=== PATIENT | male | born 1995 | race Two or more races ===

== ENCOUNTER 2022-08-13 16:57 | Emergency (ER) | payer OTHER ==
[~2022-08-13] VITALS: Ht 175.3 cm; Wt 68.3 kg
[2022-08-13 16:57] VITALS: BP 144/90
[2022-08-13] MEDS ORDERED: LORA-930 (17:03)
[2022-08-13] MEDS ORDERED: SERT25TA21 (17:03)
[2022-08-13] MEDS ORDERED: FLUO10CA18 PO (17:03)
[2022-08-13 20:04] LABS: CK-MB VALUE MASS 1.6 NG/ML (<3.6)
[2022-08-13 20:07] LABS: CPK CREATINE PHOSPHOKINASE 118 U/L (46-171); MB/CK RELATIVE INDEX 1.35 (< OR =4)
[2022-08-13 20:51] LABS: BASO % 0.4 % (0.0-1.0); EOS # 0.2 10^3/uL (0.0-0.5); EOS % 3.1 % (0.0-3.0); HEMATOCRIT 41.9 % (42.0-52.0); HEMOGLOBIN 14.8 g/dl (13.5-17.5); LYMPH # 2.4 10^3/uL (1.5-5.0); LYMPH % 36.6 % (24.0-44.0); MEAN CORPUSCULAR HEMOGLOBIN 29.9 pg (27.0-33.0); MEAN CORPUSCULAR HGB CONC 35.3 g/dl (32.0-36.5); MEAN CORPUSCULAR VOLUME 84.6 fl (80.0-96.0); MONO # 0.5 10^3/uL (0.0-0.8); MONO % 7.2 % (2.0-8.0); NEUTROPHILS # 3.5 10^3/uL (1.5-8.5); NEUTROPHILS % 52.4 % (36.0-66.0); PLATELET COUNT, AUTOMATED 297 10^3/uL (150-450); RED BLOOD COUNT 4.95 10^6/uL (4.30-6.10); WHITE BLOOD COUNT 6.7 10^3/uL (4.0-10.0)
[2022-08-13] MEDS ORDERED: ALBU6.7H6 INH (22:50)
[2022-08-13] MEDS ORDERED: BENZ200C70 PO (22:50)
== END 2022-08-13 22:59 | disposition home or self-care (01) ==
LOC: M ED 16:57
DX: J20.9 Acute bronchitis, unspecified (principal); F17.200 Nicotine dependence, unspecified, uncomplicated; Z79.52 Long term (current) use of systemic steroids; Z79.899 Other long term (current) drug therapy

== ENCOUNTER 2022-09-30 16:34 | Inpatient (IN) | payer OTHER ==
[~2022-09-30] VITALS: Ht 172.7 cm; Wt 65.6 kg
[~2022-09-30 16:34] MED LIST: ALBU6.7H6 INH; BENZ200C70 PO; FLUO10CA18 PO; LORA-930; SERT25TA21
[2022-09-30] MEDS ORDERED: FLUO40CA PO ×2 (17:12→21:49)
[2022-09-30 17:52] LABS: HEMATOCRIT 43.5 % (42.0-52.0); HEMOGLOBIN 15.2 g/dl (13.5-17.5); MEAN CORPUSCULAR HEMOGLOBIN 30.5 pg (27.0-33.0); MEAN CORPUSCULAR HGB CONC 34.9 g/dl (32.0-36.5); MEAN CORPUSCULAR VOLUME 87.2 fl (80.0-96.0); PLATELET COUNT, AUTOMATED 254 10^3/uL (150-450); RED BLOOD COUNT 4.99 10^6/uL (4.30-6.10); WHITE BLOOD COUNT 6.3 10^3/uL (4.0-10.0)
[2022-09-30 18:09] LABS: ETHYL ALCOHOL (ETHANOL) 0.003 % (0.000-0.010)
[2022-09-30 18:10] LABS: ACETAMINOPHEN LEVEL < 2.0 UG/ML (10.0-20.0); SALICYLATE LEVEL < 3.0 MG/DL (<30)
[2022-09-30 18:11] LABS: ALBUMIN 4.6 G/DL (3.2-5.2); ALKALINE PHOSPHATASE 71 U/L (46-116); ALT/SGPT 33 U/L (7.0-40); AST/SGOT 23 U/L (<34); BILIRUBIN,DIRECT 0.3 MG/DL (<0.4); BILIRUBIN,TOTAL 0.8 MG/DL (0.3-1.2); BLOOD UREA NITROGEN 17 MG/DL (9-23); CALCIUM LEVEL 9.1 MG/DL (8.5-10.1); CARBON DIOXIDE LEVEL 29 MMOL/L (20-31); CHLORIDE LEVEL 107 MMOL/L (98-107); CREATININE FOR GFR 0.88 MG/DL (0.70-1.30); GLOMERULAR FILTRATION RATE > 60.0 (>60); GLUCOSE, FASTING 84 MG/DL (60-100); POTASSIUM SERUM 4.7 MMOL/L (3.5-5.1); SODIUM LEVEL 141 MMOL/L (136-145); TOTAL PROTEIN 7.4 G/DL (5.7-8.2)
[2022-09-30 18:12] LABS: THYROID STIMULATING HORMONE 1.129 uIU/ML (0.55-4.78)
[2022-09-30 19:29] LABS: AMPHETAMINES LEVEL URINE NEGATIVE (NEGATIVE); BARBITURATES URINE NEGATIVE (NEGATIVE); BENZODIAZEPINES URINE NEGATIVE (NEGATIVE); CANNABINOIDS URINE NEGATIVE (NEGATIVE); COCAINE METABOLITE URINE NEGATIVE (NEGATIVE); METHADONE URINE NEGATIVE (NEGATIVE); PHENCYCLIDINE URINE NEGATIVE (NEGATIVE)
[2022-09-30 19:32] LABS: OPIATES URINE POSITIVE (NEGATIVE)
[2022-09-30] MEDS ORDERED: CALCIUM CARBONATE 500 MG CHEW U/D PO ONE (19:50)
[2022-09-30] MEDS ORDERED: MAALOX 30 ML SUSP *UDC PO PRN (20:20)
[2022-09-30] MEDS ORDERED: MOM 30ML SUSPENSION UDC PO PRN (20:20)
[2022-09-30] MEDS ORDERED: ACETAMINOPHEN TAB 650MG DOSE (2X325MG) PO PRN (20:20)
[2022-09-30] MEDS ORDERED: BENZ200C70 PO (21:49)
[2022-09-30] MEDS ORDERED: ALBU8.5H INH (21:49)
[2022-09-30] MEDS ORDERED: LORA-674 PO (21:49)
[2022-09-30] MEDS ORDERED: HOME MED LIST COMPLETE! XX SCH (21:50)
[2022-09-30] MEDS: traZODone 50 MG TAB PO PRN (22:23)
[2022-09-30 22:43] VITALS: BP 124/81; TEMP 98; O2SAT 100
[2022-10-01 06:30] VITALS: BP 110/58; TEMP 97.5; O2SAT 95
[2022-10-01] MEDS: FLUoxetine 20MG CAP PO SCH (08:58)
[2022-10-01] MEDS: NICOTINE 21MG/24HR 1 EA TRANSDERMAL TD SCH (08:59)
[2022-10-01] MEDS ORDERED: **PENDING PPD ENTRY XX SCH (09:00)
[2022-10-01] MEDS ORDERED: PILL CUTTER 1 EACH XX PRN (10:10)
[2022-10-01] MEDS: busPIRone 5 MG TAB PO SCH ×2 (10:24→19:58)
[2022-10-01 15:55] VITALS: BP 115/69; TEMP 98.2; O2SAT 99
[2022-10-01] MEDS ORDERED: TUBERCULIN PPD 5 UNITS/0.1 ML ID ONE ×2 (18:45→20:00)
[2022-10-01] MEDS ORDERED: ISOVUE-370 76% 100ML VIAL As Ordered ONE (18:53)
[2022-10-01] MEDS: LORazepam 1 MG TAB PO PRN (19:57)
[2022-10-01 21:05] LABS: HEMOGLOBIN A1c 4.5 % (4.0-6.0)
[2022-10-01 21:36] LABS: HEPATITIS B SURFACE ANTIGEN NEGATIVE (NEGATIVE)
[2022-10-01] MEDS: traZODone 50 MG TAB PO PRN (21:41)
[2022-10-01 21:57] LABS: HEPATITIS C VIRUS ABY INDEX 0.1 INDEX (<0.8)
[2022-10-01 21:58] LABS: HEPATITIS B CORE ANTIBODY IGM NEGATIVE (NEGATIVE)
[2022-10-02 05:35] VITALS: BP 100/67; TEMP 98.9; O2SAT 97
[2022-10-02] MEDS: FLUoxetine 20MG CAP PO SCH (08:38)
[2022-10-02] MEDS: busPIRone 5 MG TAB PO SCH (08:38)
[2022-10-02] MEDS: NICOTINE 21MG/24HR 1 EA TRANSDERMAL TD SCH (08:39)
[2022-10-02] MEDS: LORazepam 1 MG TAB PO PRN (14:47)
[2022-10-02 18:36] VITALS: BP 117/76; TEMP 97.3; O2SAT 97
[2022-10-02] MEDS: busPIRone 10 MG TAB PO SCH (20:47)
[2022-10-02] MEDS: traZODone 50 MG TAB PO PRN (22:11)
[2022-10-03 06:03] VITALS: BP 124/63; TEMP 98.4; O2SAT 98
[2022-10-03] MEDS: busPIRone 10 MG TAB PO SCH ×2 (08:11→21:55)
[2022-10-03] MEDS: NICOTINE 21MG/24HR 1 EA TRANSDERMAL TD SCH (08:11)
[2022-10-03] MEDS: FLUoxetine 20MG CAP PO SCH (08:11)
[2022-10-03] MEDS ORDERED: PPD DOCUMENTATION ENTRY MISC XX SCH (10:00)
[2022-10-03 16:00] VITALS: BP 124/67; TEMP 97.6; O2SAT 97
[2022-10-03] MEDS: LORazepam 1 MG TAB PO PRN (17:29)
[2022-10-03] MEDS ORDERED: PPD DOCUMENTATION ENTRY MISC XX ONE (20:00)
[2022-10-03] MEDS: ARIPiprazole 2 MG TAB PO SCH (21:55)
[2022-10-03] MEDS: traZODone 50 MG TAB PO PRN (22:37)
[2022-10-04 06:21] VITALS: BP 103/51; TEMP 96.9; O2SAT 100
[2022-10-04 08:01] LABS: CHOLESTEROL RISK RATIO 2.88 (<5); LDL CHOLESTEROL 63.2 MG/DL (<100)
[2022-10-04] MEDS: NICOTINE 21MG/24HR 1 EA TRANSDERMAL TD SCH (08:42)
[2022-10-04] MEDS: busPIRone 10 MG TAB PO SCH (08:43)
[2022-10-04] MEDS: FLUoxetine 20MG CAP PO SCH (08:44)
[2022-10-04] MEDS: LORazepam 1 MG TAB PO PRN (15:16)
[2022-10-04 16:18] VITALS: BP 121/65; TEMP 98.1; O2SAT 97
[2022-10-04] MEDS: busPIRone 5 MG TAB PO SCH (20:06)
[2022-10-04] MEDS: ARIPiprazole 2 MG TAB PO SCH (20:06)
[2022-10-04] MEDS: PRAZOSIN 1 MG CAP PO SCH (20:07)
[2022-10-04] MEDS: traZODone 50 MG TAB PO PRN (22:59)
[2022-10-05 06:41] VITALS: BP 104/56; TEMP 98; O2SAT 98
[2022-10-05] MEDS: NICOTINE 21MG/24HR 1 EA TRANSDERMAL TD SCH (08:14)
[2022-10-05] MEDS: busPIRone 5 MG TAB PO SCH ×2 (08:15→20:54)
[2022-10-05] MEDS: LORazepam 1 MG TAB PO PRN ×2 (08:15→17:36)
[2022-10-05] MEDS: FLUoxetine 20MG CAP PO SCH (08:15)
[2022-10-05 16:24] VITALS: BP 110/56; TEMP 97.7; O2SAT 100
[2022-10-05] MEDS: ARIPiprazole 2 MG TAB PO SCH (20:55)
[2022-10-05] MEDS: PRAZOSIN 1 MG CAP PO SCH (20:55)
[2022-10-05] MEDS: traZODone 50 MG TAB PO PRN (22:25)
[2022-10-06 06:30] VITALS: BP 113/56; TEMP 98.2; O2SAT 99
[2022-10-06] MEDS: FLUoxetine 20MG CAP PO SCH (08:43)
[2022-10-06] MEDS: busPIRone 5 MG TAB PO SCH ×2 (08:43→20:10)
[2022-10-06] MEDS: NICOTINE 21MG/24HR 1 EA TRANSDERMAL TD SCH (08:46)
[2022-10-06] MEDS ORDERED: cloNIDine 0.1MG TABLET PO PRN (14:45)
[2022-10-06 18:00] VITALS: BP 146/80; TEMP 97.9; O2SAT 98
[2022-10-06] MEDS: ARIPiprazole 2 MG TAB PO SCH (20:09)
[2022-10-06] MEDS: PRAZOSIN 1 MG CAP PO SCH (20:09)
[2022-10-06] MEDS: traZODone 50 MG TAB PO PRN (22:33)
[2022-10-07 06:22] VITALS: BP 103/57; TEMP 98.1; O2SAT 98
[2022-10-07] MEDS: busPIRone 5 MG TAB PO SCH ×2 (08:17→20:29)
[2022-10-07] MEDS: FLUoxetine 20MG CAP PO SCH (08:17)
[2022-10-07] MEDS: NICOTINE 21MG/24HR 1 EA TRANSDERMAL TD SCH (08:18)
[2022-10-07 17:49] VITALS: BP 124/60; TEMP 97.6
[2022-10-07] MEDS: PRAZOSIN 1 MG CAP PO SCH (20:28)
[2022-10-07] MEDS: traZODone 50 MG TAB PO PRN (20:28)
[2022-10-07] MEDS: ARIPiprazole 2 MG TAB PO SCH (20:29)
[2022-10-08 06:21] VITALS: BP 101/65; TEMP 98; O2SAT 98
[2022-10-08] MEDS: busPIRone 5 MG TAB PO SCH ×2 (08:20→20:05)
[2022-10-08] MEDS: FLUoxetine 20MG CAP PO SCH (08:21)
[2022-10-08] MEDS: NICOTINE 21MG/24HR 1 EA TRANSDERMAL TD SCH (08:22)
[2022-10-08 18:10] VITALS: BP 134/64; TEMP 98.1
[2022-10-08] MEDS: ARIPiprazole 2 MG TAB PO SCH (20:05)
[2022-10-08] MEDS: traZODone 50 MG TAB PO PRN (20:05)
[2022-10-08 20:06] VITALS: BP 134/64
[2022-10-08] MEDS: PRAZOSIN 1 MG CAP PO SCH (20:06)
[2022-10-09 06:49] VITALS: BP 109/58; TEMP 96.5; O2SAT 98
[2022-10-09] MEDS ORDERED: FLUO40CA PO (08:12)
[2022-10-09] MEDS ORDERED: BUSP15TA47 PO (08:12)
[2022-10-09] MEDS ORDERED: MINI1CAP PO (08:12)
[2022-10-09] MEDS ORDERED: ABIL1TAB13 PO (08:12)
[2022-10-09] MEDS ORDERED: TRAZ-252 PO (08:12)
[2022-10-09] MEDS ORDERED: NICO21PAT TD (08:12)
[2022-10-09] MEDS: busPIRone 5 MG TAB PO SCH (08:51)
[2022-10-09] MEDS: FLUoxetine 20MG CAP PO SCH (08:51)
[2022-10-09] MEDS: NICOTINE 21MG/24HR 1 EA TRANSDERMAL TD SCH (08:52)
== END 2022-10-09 10:58 | disposition home or self-care (01) | DRG 885 ==
LOC: M ED 16:34 → M ED INP 20:20 → M PSY 21:32
PROVIDERS: ADMIT Student in an Organized Health Care Education/Training Program; ATTEND Student in an Organized Health Care Education/Training Program
DX: F33.1 Major depressive disorder, recurrent, moderate (principal); R45.851 Suicidal ideations; F40.00 Agoraphobia, unspecified; F40.10 Social phobia, unspecified; F17.290 Nicotine dependence, other tobacco product, uncomplicated; F45.8 Other somatoform disorders; F41.1 Generalized anxiety disorder; Z81.8 Family history of other mental and behavioral disorders; Z91.51 Personal history of suicidal behavior; Z62.812 Personal history of neglect in childhood; Z79.899 Other long term (current) drug therapy; Z88.8 Allergy status to other drugs, medicaments and biological substances; Z71.6 Tobacco abuse counseling

== ENCOUNTER 2024-05-10 11:46 | Emergency (ER) | payer OTHER ==
[~2024-05-10] VITALS: Ht 172.7 cm; Wt 76.0 kg
[~2024-05-10 11:46] MED LIST changes: +ABIL1TAB13 PO; +ALBU8.5H INH; +BUPR150T12 PO; +BUSP15TA47 PO; +FLUO-290 PO; -FLUO10CA18 PO; +FLUO40CA PO; +GUAI600T12 PO; +HYDR-3363 PO; +LORA-1041 PO; +MINI1CAP PO; +NAPR-885 PO; +NICO21PAT TD; +OFLOSO AD; +PRAZ1CAP PO; +TRAZ-252 PO
[2024-05-10] MEDS ORDERED: ABIL1TAB11 PO (12:02)
[2024-05-10] MEDS ORDERED: HYDR1TAB33 PO (12:18)
[2024-05-10 12:48] LABS: HEMOGLOBIN 16.5 g/dl (13.5-17.5); MEAN CORPUSCULAR HEMOGLOBIN 29.9 pg (27.0-33.0); MEAN CORPUSCULAR HGB CONC 35.1 g/dl (32.0-36.5); MEAN CORPUSCULAR VOLUME 85.1 fl (80.0-96.0); PLATELET COUNT, AUTOMATED 242 10^3/uL (150-450); RED BLOOD COUNT 5.52 10^6/uL (4.30-6.10); WHITE BLOOD COUNT 5.1 10^3/uL (4.0-10.0)
[2024-05-10 13:02] LABS: AMPHETAMINES LEVEL URINE NEGATIVE (NEGATIVE); BARBITURATES URINE NEGATIVE (NEGATIVE); BENZODIAZEPINES URINE NEGATIVE (NEGATIVE); COCAINE METABOLITE URINE NEGATIVE (NEGATIVE); METHADONE URINE NEGATIVE (NEGATIVE); OPIATES URINE NEGATIVE (NEGATIVE); PHENCYCLIDINE URINE NEGATIVE (NEGATIVE)
[2024-05-10 13:03] LABS: CANNABINOIDS URINE NEGATIVE (NEGATIVE)
[2024-05-10 13:05] LABS: ETHYL ALCOHOL (ETHANOL) < 0.003 % (0.000-0.010)
[2024-05-10 13:07] LABS: ALBUMIN 4.5 G/DL (3.2-5.2); ALKALINE PHOSPHATASE 73 U/L (40-129); ALT/SGPT 27 U/L (7.0-40); AST/SGOT 23 U/L (<34); BILIRUBIN,DIRECT 0.3 MG/DL (<0.4); BILIRUBIN,TOTAL 0.8 MG/DL (0.3-1.2); BLOOD UREA NITROGEN 15 MG/DL (9-23); CALCIUM LEVEL 9.3 MG/DL (8.5-10.1); CARBON DIOXIDE LEVEL 31 MMOL/L (20-31); CHLORIDE LEVEL 106 MMOL/L (98-107); CREATININE FOR GFR 0.92 MG/DL (0.70-1.30); GLOMERULAR FILTRATION RATE > 60.0 (>60); GLUCOSE, FASTING 59 MG/DL (60-100); POTASSIUM SERUM 4.2 MMOL/L (3.5-5.1); SALICYLATE LEVEL < 3.0 MG/DL (<30); SODIUM LEVEL 143 MMOL/L (136-145); TOTAL PROTEIN 7.9 G/DL (5.7-8.2)
[2024-05-10 13:09] LABS: THYROID STIMULATING HORMONE 0.954 uIU/ML (0.55-4.78)
[2024-05-10] MEDS ORDERED: HOME MED LIST COMPLETE! XX SCH (13:45)
[2024-05-10 14:06] LABS: APPEARANCE, URINE CLEAR (CLEAR); BACTERIA, URINE AUTO NEGATIVE (NEGATIVE); BILIRUBIN, URINE AUTO NEGATIVE (NEGATIVE); BLOOD, URINE BLOOD NEGATIVE (NEGATIVE); COLOR, URINE YELLOW (YELLOW); GLUCOSE, URINE (UA) AUTO NEGATIVE (NEGATIVE); KETONE, URINE AUTO NEGATIVE (NEGATIVE); LEUKOCYTE ESTERASE, URINE AUTO NEGATIVE (NEGATIVE); MUCUS, URINE SMALL (NEGATIVE); NITRITE, URINE AUTO NEGATIVE (NEGATIVE); PROTEIN, URINE AUTO NEGATIVE (NEGATIVE); RBC, URINE AUTO 0 /HPF (0-3); SPECIFIC GRAVITY URINE AUTO 1.026 (1.002-1.035); SQUAMOUS EPITHELIAL CELL UR AU 0 /HPF (0-6); UROBILINOGEN, URINE AUTO 0.2 mg/dL (0.0-2.0); WBC, URINE AUTO 0 /HPF (0-3)
[2024-05-10 14:58] LABS: RSV AMPLIFICATION NEGATIVE (NEGATIVE)
[2024-05-11] MEDS: NICOTINE 21MG/24HR 1 EA TRANSDERMAL TD ONE (10:08)
[2024-05-11 11:25] VITALS: BP 127/73; TEMP 97.3; O2SAT 100
== END 2024-05-11 11:30 ==
LOC: M ED 11:46
DX: F32.A Depression, unspecified (principal); F32.9 Major depressive disorder, single episode, unspecified; R45.851 Suicidal ideations; F41.9 Anxiety disorder, unspecified; F17.200 Nicotine dependence, unspecified, uncomplicated; F10.10 Alcohol abuse, uncomplicated; Z88.8 Allergy status to other drugs, medicaments and biological substances